=== PATIENT | female | born 1965 | race Caucasian/White ===

== ENCOUNTER 2018-04-28 11:11 | Emergency (ER) | payer OTHER ==
--- NOTE | 2018-04-28 12:31 | RAD REPORT ---
EXAM DESCRIPTION: RAD - Tib Fib Right - 04/28/2018 12:20 pm CLINICAL HISTORY: Right leg pain status post fall FINDINGS: No fracture is seen
--- NOTE | 2018-04-28 13:13 | RAD REPORT ---
EXAM DESCRIPTION: RAD - Knee Right 3 View - 04/28/2018 12:46 pm CLINICAL HISTORY: Right knee pain status post fall FINDINGS: No fracture or dislocation is seen.
--- NOTE | 2018-04-28 13:31 | EDPHYS ---
Physician Documentation [facility] Name: Sophia Li Age: 52 yrs Sex: Female : 1965 Arrival Date: 04/28/2018 Time: 11:13 Bed 16 Private MD: SANJUANA GREER ED Physician Joshua Pierce HPI: 04/28 14:00 This 52 yrs old Female presents to ER via Ambulatory with complaints of Fall pm1 Injury. 14:00 Details of fall: The patient fell from a height, from a ladder, approximately 4 feet. pm1 14:00 Onset: The symptoms/episode began/occurred yesterday. Associated injuries: The patient pm1 sustained right knee. Severity of symptoms: in the emergency department the symptoms are unchanged. The patient has not experienced similar symptoms in the past. The patient has not recently seen a physician. Patient was on a ladder and lost her balance. Patient landed between the ladder on her feet with most of the weight applied to right leg. Patient with pain only present to right knee with certain motions. Patient is able to bear weight and walk on the right leg. only ceratin motions elicit pain to lateral aspect of her right knee. No headache, LOC, head injury or neck pain. 14:00 Patient reports walking with right leg straight, not bending right knee, prevents pain. 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 - Social history:: Smoking status: Patient/guardian denies using tobacco, Patient/guardian denies using alcohol. - Ebola Screening: : Patient negative for fever greater than or equal to 101.5 degrees Fahrenheit, and additional compatible Ebola Virus Disease symptoms Patient denies exposure to infectious person Patient denies travel to an Ebola-affected area in the 21 days before illness onset. ROS: 14:00 Constitutional: Negative for fever, chills, and weight loss, Eyes: Negative for injury, pm1 pain, redness, and discharge, ENT: Negative for injury, pain, and discharge, Neck: Negative for injury, pain, and swelling, Cardiovascular: Negative for chest pain, palpitations, and edema, Respiratory: Negative for shortness of breath, cough, wheezing, and pleuritic chest pain, Abdomen/GI: Negative for abdominal pain, nausea, vomiting, diarrhea, and constipation, Back: Negative for injury and pain, : Negative for injury, bleeding, discharge, and swelling. 14:00 Skin: Negative for injury, rash, and discoloration, Neuro: Negative for headache, weakness, numbness, tingling, and seizure. 14:00 MS/extremity: Positive for pain, of the right knee, Negative for decreased range of motion, deformity. Exam: 14:00 Constitutional: This is a well developed, well nourished patient who is awake, alert, pm1 and in no acute distress. Head/Face: Normocephalic, atraumatic. Eyes: Pupils equal round and reactive to light, extra-ocular motions intact. Lids and lashes normal. Conjunctiva and sclera are non-icteric and not injected. Cornea within normal limits. Periorbital areas with no swelling, redness, or edema. ENT: Nares patent. No nasal discharge, no septal abnormalities noted. Tympanic membranes are normal and external auditory canals are clear. Oropharynx with no redness, swelling, or masses, exudates, or evidence of obstruction, uvula midline. Mucous membranes moist. Neck: Trachea midline, no thyromegaly or masses palpated, and no cervical lymphadenopathy. Supple, full range of motion without nuchal rigidity, or vertebral point tenderness. No Meningismus. Chest/axilla: Normal chest wall appearance and motion. Nontender with no deformity. No lesions are appreciated. Cardiovascular: Regular rate and rhythm with a normal S1 and S2. No gallops, murmurs, or rubs. Normal PMI, no JVD. No pulse deficits. Respiratory: Lungs have equal breath sounds bilaterally, clear to auscultation and percussion. No rales, rhonchi or wheezes noted. No increased work of breathing, no retractions or nasal flaring. Abdomen/GI: Soft, non-tender, with normal bowel sounds. No distension or tympany. No guarding or rebound. No evidence of tenderness throughout. Back: No spinal tenderness. No costovertebral tenderness. Full range of motion. Skin: Warm, dry with normal turgor. Normal color with no rashes, no lesions, and no evidence of cellulitis. 14:00 Musculoskeletal/extremity: Extremities: grossly normal except: noted in the right knee: There is no evidence of decreased ROM, deformity, tenderness. 14:00 Neuro: Orientation: is normal, Motor: moves all fours. Vital Signs: 11:28 BP 124 / 94; Pulse 98; Resp 18; Temp 97.2(TE); Pulse Ox 99% on R/A; Weight 82.55 kg; hj Height 5 ft. 6 in. (167.64 cm); Pain 3/10; 11:28 Body Mass Index 29.38 (82.55 kg, 167.64 cm) hj MDM: 11:59 Patient medically screened. pm1 13:29 Data reviewed: vital signs. Data interpreted: Pulse oximetry: on room air is 99 %. pm1 Interpretation: normal. Counseling: I had a detailed discussion with the patient and/or guardian regarding: the historical points, exam findings, and any diagnostic results supporting the discharge/admit diagnosis, radiology results, the need for outpatient follow up, a orthopedic surgeon, to return to the emergency department if symptoms worsen or persist or if there are any questions or concerns that arise at home. 04/28 11:29 Order name: Tib Fib Right XRAY; Complete Time: 13:23 hj 04/28 12:04 Order name: Knee Right 3 View XRAY; Complete Time: 13:23 pm1 04/28 13:31 Order name: Knee Immobilizer; Complete Time: 13:55 pm1 04/28 13:31 Order name: Crutches; Complete Time: 13:55 pm1 Administered Medications: No medications were administered Disposition: 04/29 10:12 Co-signature as Attending Physician, Joshua Pierce MD. Disposition: 04/28/18 13:30 Discharged to Home. Impression: Pain in right knee. - Condition is Stable. - Discharge Instructions: Crutch Use, Knee Immobilizer, Knee Pain. - Medication Reconciliation Form, Thank You Letter, Antibiotic Education, Prescription Opioid Use form. - Follow up: Emergency Department; When: As needed; Reason: Worsening of condition. Follow up: Vega Eaton MD; When: 2 - 3 days; Reason: Recheck today's complaints, Continuance of care, Re-evaluation by your physician. - Problem is new. - Symptoms have improved. Signatures: Dispatcher [employer] EDMS Caleb Reilly RN RN sg Christian Pollack RN RN Simone Montenegro, COLLECTION TELLER COLLECTION TELLER pm1 Joshua Pierce MD MD gs Corrections: (The following items were deleted from the chart) 04/28 13:57 13:30 04/28/2018 13:30 Discharged to Home. Impression: Pain in right knee. Condition is sg Stable. Forms are Medication Reconciliation Form, Thank You Letter, Antibiotic Education, Prescription Opioid Use. Follow up: Emergency Department; When: As needed; Reason: Worsening of condition. Follow up: Vega Eaton; When: 2 - 3 days; Reason: Recheck today's complaints, Continuance of care, Re-evaluation by your physician. Problem is new. Symptoms have improved. pm1
--- NOTE | 2018-04-28 13:31 | ER ---
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 Transition of care: patient was not received from another setting of care. Onset of symptoms was April 28, 2018. Risk Assessment: Do you want to hurt yourself or someone else? Patient reports no desire to harm self or others. Initial Sepsis Screen: Does the patient meet any 2 criteria? No. Patient's initial sepsis screen is negative. Does the patient have a suspected source of infection? No. Patient's initial sepsis screen is negative. Care prior to arrival: None. 11:25 Method Of Arrival: Ambulatory 11:25 Acuity: ZAN 4 hj Triage Assessment: 11:27 General: Appears in no apparent distress. uncomfortable, Behavior is calm, cooperative, hj appropriate for age. Pain: Complains of pain in right peralta. 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 - Social history:: Smoking status: Patient/guardian denies using tobacco, Patient/guardian denies using alcohol. - Ebola Screening: : Patient negative for fever greater than or equal to 101.5 degrees Fahrenheit, and additional compatible Ebola Virus Disease symptoms Patient denies exposure to infectious person Patient denies travel to an Ebola-affected area in the 21 days before illness onset. Screenin:27 Abuse screen: Denies threats or abuse. Denies injuries from another. Nutritional hj screening: No deficits noted. Tuberculosis screening: No symptoms or risk factors identified. Fall Risk None identified. Assessment: 12:20 General: Appears comfortable, well groomed, well developed, well nourished, Behavior is sg calm, cooperative, appropriate for age. Pain: Complains of pain in right leg Quality of pain is described as aching, worsening with bending of the right knee. Neuro: Level of Consciousness is awake, alert, obeys commands, Gait is steady, Speech is normal, Facial symmetry appears normal. Cardiovascular: Heart tones S1 S2 present Capillary refill is brisk in bilateral fingers Patient's skin is warm and dry. Chest pain is denied. Respiratory: Airway Respiratory effort is even, unlabored, Respiratory pattern is regular, symmetrical. GI: Abdomen is flat, non-distended. : No signs and/or symptoms were reported regarding the genitourinary system. EENT: No signs and/or symptoms were reported regarding the EENT system. Derm: Skin is pink, warm \T\ dry. Musculoskeletal: Circulation, motion, and sensation intact. Range of motion: intact in all extremities, Swelling absent Reports pain in right knee. Vital Signs: 11:28 BP 124 / 94; Pulse 98; Resp 18; Temp 97.2(TE); Pulse Ox 99% on R/A; Weight 82.55 kg; hj Height 5 ft. 6 in. (167.64 cm); Pain 3/10; 11:28 Body Mass Index 29.38 (82.55 kg, 167.64 cm) ED Course: 11:13 Patient arrived in ED. sb2 11:13 SANJUANA GREER is Private Physician. sb2 11:27 Triage completed. hj 11:28 Arm band placed on left wrist. hj 11:28 Patient has correct armband on for positive identification. Bed in low position. Call light in reach. Side rails up X 1. 11:58 Simone Montenegro NP is PHCP. pm1 11:58 Joshua Pierce MD is Attending Physician. pm1 12:19 Tib Fib Right XRAY In Process Unspecified. EDMS 12:19 Knee Right 3 View XRAY In Process Unspecified. EDMS 13:29 Leona Theodore, LISA is Primary Nurse. ss 13:30 Vega Eaton MD is Referral Physician. pm1 13:50 No provider procedures requiring assistance completed. IV discontinued, intact, sg bleeding controlled, No redness/swelling at site. Pressure dressing applied. Administered Medications: No medications were administered Outcome: 13:30 Discharge ordered by . pm1 13:56 Discharged to home ambulatory, with family. sg 13:56 Condition: good 13:56 Discharge instructions given to patient, friend, Instructed on discharge instructions, follow up and referral plans. safety practices, crutch walking, Demonstrated understanding of instructions, follow-up care, crutch walking. 13:57 Patient left the ED. sg Signatures: Dispatcher [employer] EDCaleb Campuzano RN RN sg Smirch, Shelby, RN RN ss Joaquin, Henry, RN RN hj Marinas, Patrick, NP GAME MANAGER pm1 Camila Stern sb2
[2018-04-28 14:17] VITALS: BP 124/94; TEMP 97.2; O2SAT 99
== END 2018-04-28 13:57 | disposition home or self-care (01) ==
LOC: ER 11:11
DX: M25.561 Pain in right knee (principal); W11.XXXA Fall on and from ladder, initial encounter
CPT/HCPCS: 99283

== ENCOUNTER 2023-07-31 21:16 | Emergency (ER) | payer OTHER ==
[2023-07-31] MEDS ORDERED: IBUPROFEN 400 MG TAB ONE (21:55)
--- NOTE | 2023-07-31 22:19 | RAD REPORT ---
EXAM DESCRIPTION: RAD - Forearm Left - 07/31/2023 10:12 pm CLINICAL HISTORY: PAIN COMPARISON: No comparisons FINDINGS: Mildly impacted fracture is likely present involving distal radius particularly in the reg ion of the radial styloid. There is subtle cortical irregularity and sclerosis noted in this region. Moderate soft tissue swelling is noted. No dislocation.
--- NOTE | 2023-07-31 23:05 | ER ---
Nurse's Notes [facility] Name: Sophia Li Age: 57 yrs Sex: Female : 1965 Arrival Date: 07/31/2023 Time: 21:16 Bed 13 Private MD: Diagnosis: impacted fracture distal radius, left Presentation: 07/31 21:38 Chief complaint: Patient states: tripped walking down my hallway and landed on my left vc1 arm. Coronavirus screen: Vaccine status: Patient reports receiving the 2nd dose of the covid vaccine. plus 3 boosters Client denies travel out of the [place] in the last 14 days. At this time, the client does not indicate any symptoms associated with coronavirus-19. Ebola Screen: Patient negative for fever greater than or equal to 101.5 degrees Fahrenheit, and additional compatible Ebola Virus Disease symptoms Patient denies exposure to infectious person. Patient denies travel to an Ebola-affected area in the 21 days before illness onset. No symptoms or risks identified at this time. Initial Sepsis Screen: Does the patient meet any 2 criteria? No. Patient's initial sepsis screen is negative. Does the patient have a suspected source of infection? No. Patient's initial sepsis screen is negative. Risk Assessment: Do you want to hurt yourself or someone else? Patient reports no desire to harm self or others. Onset of symptoms was July 31, 2023. 21:38 Method Of Arrival: Ambulatory vc1 21:38 Acuity: ZAN 4 vc1 21:47 Care prior to arrival: None. Mechanism of Injury: Fall from standing position. Trauma lg3 event details: Injury occurred in the [facility]. Triage Assessment: 21:41 General: Appears in no apparent distress. comfortable, Behavior is calm, cooperative, vc1 appropriate for age. Pain: Complains of pain in left wrist Pain does not radiate. Pain currently is 5 out of 10 on a pain scale. Pain began suddenly, 30 min ago. Is continuous, Alleviated by rest, Aggravated by repositioning, Noted to be grimacing, guarding, resistant to movement, Also complains of no other associated symptoms. EENT: No deficits noted. No signs and/or symptoms were reported regarding the EENT system. Neuro: No deficits noted. Cardiovascular: No deficits noted. Respiratory: Airway is patent Respiratory effort is even, unlabored, Respiratory pattern is regular, symmetrical. GI: No deficits noted. No signs and/or symptoms were reported involving the gastrointestinal system. : No deficits noted. No signs and/or symptoms were reported regarding the genitourinary system. Derm: No deficits noted. No signs and/or symptoms reported regarding the dermatologic system. Musculoskeletal: Swelling present in left wrist. Trauma Activation: Not Applicable Physician: ED Physician; Name: ; Notified At: ; Arrived At: Physician: General Surgeon; Name: ; Notified At: ; Arrived At: Physician: Radiology; Name: ; Notified At: ; Arrived At: Physician: Respiratory; Name: ; Notified At: ; Arrived At: Physician: Lab; Name: ; Notified At: ; Arrived At: Historical: - Allergies: 21:40 No Known Allergies; vc1 - Home Meds: 21:40 rosuvastatin oral [Active]; vc1 - PMHx: 21:40 High Cholesterol; vc1 - PSHx: 21:40 Carpul tunnel Sx Jeff wrists; Appendectomy; Cholecystectomy; vc1 - Immunization history:: Client reports receiving the 2nd dose of the Covid vaccine, Flu vaccine is up to date. - Social history:: Smoking status: Patient denies any tobacco usage or history of. - Immunization history: Last tetanus immunization: - up to date. Screenin:42 [facility] ED Fall Risk Assessment (Adult) History of falling in the last 3 months, vc1 including since admission Yes- single mechanical fall (1 pt) Confusion or Disorientation No (0 pts) Intoxicated or Sedated No (0 pts) Impaired Gait No (0 pts) Mobility Assist Device Used No (0 pt) Altered Elimination No (0 pt) Score/Fall Risk Level 0 - 2 = Low Risk Oriented to surroundings, Maintained a safe environment, Educated pt \T\ family on fall prevention, incl call for assistance when getting out of bed. Abuse screen: Denies threats or abuse. Nutritional screening: No deficits noted. Tuberculosis screening: No symptoms or risk factors identified. Primary Survey: 21:47 NO uncontrolled hemorrhage observed. A: The client is awake and alert. The airway is lg3 patent. Breathing/Chest: Spontaneous respiratory effort, equal unlabored respirations, breath sounds clear bilaterally, regular pattern, symmetrical chest rise and fall. Circulation: No external hemorrhage present. Regular and strong central pulse, skin warm/dry/normal color. Disability Pupils are equal, round, reactive to light and accommodation. Client is alert. Client responds to verbal stimuli. Exposure/Environment: All clothing and personal items were removed. Forensic evidence collection is not deemed to be indicated at this time. Items placed in patient belonging bag. 08/01 00:08 Reassessment Alertness and Airway: Awake and alert. The airway is patent. Breathing: lg3 Spontaneous respiratory effort, equal unlabored respirations, breath sounds clear bilaterally, regular pattern with symmetrical chest rise and fall. Circulation: No external hemorrhage noted. Regular and strong central pulse, skin warm/dry/normal color. Disability: Pupils Pupils are equal, round, reactive to light and accomodation. Alert Verbal stimuli. Assessment: 07/31 21:48 General: Appears in no apparent distress. comfortable, Behavior is calm, cooperative. lg3 Pain: Complains of pain in left arm and left wrist. Neuro: No deficits noted. Coley Agitation-Sedation Scale (RASS): 0 - Alert and Calm Level of Consciousness is awake, alert, obeys commands, Oriented to person, place, time, situation. Cardiovascular: No deficits noted. Denies chest pain, shortness of breath, Capillary refill < 3 seconds Clubbing of nail beds is absent JVD is absent Patient's skin is warm and dry. Respiratory: No deficits noted. Airway is patent Trachea midline Respiratory effort is even, unlabored, Respiratory pattern is regular, symmetrical. GI: No deficits noted. No signs and/or symptoms were reported involving the gastrointestinal system. : No deficits noted. No signs and/or symptoms were reported regarding the genitourinary system. EENT: No deficits noted. No signs and/or symptoms were reported regarding the EENT system. Derm: No deficits noted. No signs and/or symptoms reported regarding the dermatologic system. Skin is intact, is healthy with good turgor, Skin is dry, Skin is normal, Skin temperature is warm. Musculoskeletal: Circulation, motion, and sensation intact. Reports pain in left wrist. 08/01 00:06 Reassessment: Patient appears in no apparent distress at this time. No changes from lg3 previously documented assessment. Patient and/or family updated on plan of care and expected duration. Pain level reassessed. Patient is alert, oriented x 3, equal unlabored respirations, skin warm/dry/pink. Vital Signs: 07/31 21:38 BP 160 / 100; Pulse 64; Resp 15; Temp 98; Pulse Ox 99% ; Weight 73.48 kg; Height 6 ft. vc1 2 in. ; Pain 5/10; 21:48 BP 156 / 95; Pulse 66; Resp 16 S; Pulse Ox 99% on R/A; lg3 12 00:07 BP 151 / 89; Pulse 69; Resp 17 S; Pulse Ox 99% on R/A; lg3 12 21:38 Body Mass Index 20.80 (73.48 kg, 187.96 cm) vc1 12 21:38 Pain Scale: Adult vc1 Jared Coma Score: 12 21:47 Eye Response: spontaneous(4). Motor Response: obeys commands(6). Verbal Response: lg3 oriented(5). Total: 15. Trauma Score (Adult): 21:47 Eye Response: spontaneous(1); Verbal Response: oriented(1); Motor Response: obeys lg3 commands(2); Systolic BP: > 89 mm Hg(4); Respiratory Rate: 10 to 29 per min(4); Lancaster Score: 15; Trauma Score: 12 ED Course: 21:21 Patient arrived in ED. mr 21:34 [facility] Cool [facility]C [facility]. kb 21:34 Solo Perez MD is Attending Physician. kb 21:40 Triage completed. vc1 21:40 Arm band placed on right wrist. vc1 21:43 Patient has correct armband on for positive identification. Bed in low position. Call vc1 light in reach. Pulse ox on. NIBP on. 21:47 Patient maintains SpO2 saturation greater than 95% on room air. lg3 21:48 Door closed. Noise minimized. Warm blanket given. Family accompanied patient. lg3 22:14 Forearm Left XRAY In Process Unspecified. EDMS 08/01 00:06 Yuliya Bundy, RN is Primary Nurse. lg3 00:07 Assist provider with fracture care of left arm Fracture is closed. Obvious deformity is lg3 not noted. Circulation, motor and sensation is intact. Set up for procedure. Performed by Yuliya Bundy RN Immobilized with preformed splint, Post immobilization, circulation, motor and sensation remain intact. Patient tolerated well. Patient did not have IV access during this emergency room visit. 00:08 Thermoregulation: warm blanket given to patient. lg3 Administered Medications: 07/31 21:47 Drug: Ibuprofen PO 800 mg PO once Route: PO; lg3 08/01 00:06 Follow up: Response: No adverse reaction lg3 07/31 23:22 Drug: Harvey PO 10 mg-325 mg 1 tabs PO once Route: PO; lg3 08/01 00:06 Follow up: Response: No adverse reaction; Marked relief of symptoms lg3 Medication: 00:08 VIS not applicable for this client. lg3 Outcome: 07/31 23:04 Discharge ordered by MD. phelan 08/01 00:07 Discharged to home ambulatory, with significant other, lg3 Condition: stable Discharge instructions given to patient, Instructed on discharge instructions, follow up and referral plans. medication usage, Demonstrated understanding of instructions, follow-up care, medications, splint care, Prescriptions given X 1, 00:08 Patient's length of stay was not longer than 2 hours. lg3 00:08 Patient left the ED. lg3 Signatures: Dispatcher [employer] EDMS Lety Cool, MALT ROASTER-C MALT ROASTER-Ana [place], Reg Reg Yuliya Ramirez, RN RN lg3 Doreen Engle RN RN vc1
--- NOTE | 2023-07-31 23:05 | EDPHYS ---
Physician Documentation [facility] Name: Sophia Li Age: 57 yrs Sex: Female : 1965 Arrival Date: 07/31/2023 Time: 21:16 Bed 13 Private MD: ED Physician Solo Perez HPI: 07/31 21:46 This 57 yrs old Female presents to ER via Ambulatory with complaints of Fall Injury, kb Arm Pain, Head Injury-Adult. 21:46 Pt is a 57 year old female who presents for left wrist pain after tripping and falling, kb hitting the wall. States she hit her head as well, but denies loc, headache, dizziness, nausea or vomiting. Historical: - Allergies: 21:40 No Known Allergies; vc1 - Home Meds: 21:40 rosuvastatin oral [Active]; vc1 - PMHx: 21:40 High Cholesterol; vc1 - PSHx: 21:40 Carpul tunnel Sx Jeff wrists; Appendectomy; Cholecystectomy; vc1 - Immunization history:: Client reports receiving the 2nd dose of the Covid vaccine, Flu vaccine is up to date. - Social history:: Smoking status: Patient denies any tobacco usage or history of. - Immunization history: Last tetanus immunization: - up to date. ROS: 21:46 Constitutional: Negative for fever, chills, and weight loss, kb 21:46 MS/extremity: Positive for decreased range of motion, pain, swelling, tenderness, of the left wrist, 21:46 All other systems are negative, Exam: 21:46 Constitutional: This is a well developed, well nourished patient who is awake, alert, kb and in no acute distress. Head/Face: Normocephalic, atraumatic. ENT: Moist Mucous membranes Respiratory: Respirations even and unlabored. No increased work of breathing. Talking in full sentences Skin: Warm, dry with normal turgor. Normal color. Neuro: Awake and alert, GCS 15, oriented to person, place, time, and situation. Moves all extremities. Normal gait. 21:46 Musculoskeletal/extremity: Extremities: grossly normal except: noted in the left wrist: decreased ROM, pain, swelling, tenderness, ROM: limited active range of motion due to pain, Circulation is intact in all extremities. Sensation intact. Vital Signs: 21:38 BP 160 / 100; Pulse 64; Resp 15; Temp 98; Pulse Ox 99% ; Weight 73.48 kg; Height 6 ft. vc1 2 in. ; Pain 5/10; 21:48 BP 156 / 95; Pulse 66; Resp 16 S; Pulse Ox 99% on R/A; lg3 08/01 00:07 BP 151 / 89; Pulse 69; Resp 17 S; Pulse Ox 99% on R/A; lg3 07/31 21:38 Body Mass Index 20.80 (73.48 kg, 187.96 cm) vc1 12 21:38 Pain Scale: Adult vc1 Jared Coma Score: 07/31 21:47 Eye Response: spontaneous(4). Motor Response: obeys commands(6). Verbal Response: lg3 oriented(5). Total: 15. Trauma Score (Adult): 21:47 Eye Response: spontaneous(1); Verbal Response: oriented(1); Motor Response: obeys lg3 commands(2); Systolic BP: > 89 mm Hg(4); Respiratory Rate: 10 to 29 per min(4); Manor Score: 15; Trauma Score: 12 MDM: 21:34 Patient medically screened. kb 21:46 Differential diagnosis: closed head injury, contusion, fracture, sprain. Data reviewed: zhane vital signs, nurses notes. 23:05 Independent interpretation of the following test(s) in the Emergency Department X-Ray: kb My interpretation is distal radius fracture. Test considered but Not performed: CT: ct head considered, but pt has no neuro deficits and denies loc/headache. Counseling: I had a detailed discussion with the patient and/or guardian regarding the historical points, exam findings, and any diagnostic results supporting the discharge/admit diagnosis, radiology results, the need for outpatient follow up, a orthopedic surgeon, to return to the emergency department if symptoms worsen or persist or if there are any questions or concerns that arise at home. 07/31 21:34 Order name: Forearm Left XRAY; Complete Time: 22:30 kb 07/31 23:04 Order name: Sugar Tong Forearm Splint; Complete Time: 00:06 kb 07/31 23:04 Order name: Sling; Complete Time: 00:06 kb Administered Medications: 21:47 Drug: Ibuprofen PO 800 mg PO once Route: PO; lg3 08/01 00:06 Follow up: Response: No adverse reaction lg3 07/31 23:22 Drug: Toluca PO 10 mg-325 mg 1 tabs PO once Route: PO; lg3 08/01 00:06 Follow up: Response: No adverse reaction; Marked relief of symptoms lg3 Disposition: 07/31 23:11 Co-signature as Attending Physician, Solo Perez MD I agree with the assessment sp4 and plan of care. I reviewed the patient's care provided by the Advanced Practice Provider and agree with the diagnosis and treatment plan. Disposition Summary: 07/31/23 23:04 Discharge Ordered Notes: Location: Home kb Condition: Stable kb Diagnosis - impacted fracture distal radius, left kb Followup: kb - With: Emergency Department - When: As needed - Reason: Worsening of condition Followup: kb - With: Private Physician - When: 2 - 3 days - Reason: Recheck today's complaints, Continuance of care, Re-evaluation by your physician Discharge Instructions: - Discharge Summary Sheet kb - Radial Fracture kb Forms: - Medication Reconciliation Form kb - Thank You Letter kb - Antibiotic Education kb - Prescription Opioid Use kb - Patient Portal Instructions kb - Leadership Thank You Letter kb Prescriptions: - Diclofenac Sodium 75 mg Oral tablet, delayed release (enteric coated) - take 1 tablet ORAL route 2 times per day As needed; 30 tablet; Refills: 0, kb Product Selection Permitted Signatures: Dispatcher [employer] Lety Bass, MARANDA [employer]-Yuliya Patel RN RN lg3 Doreen Engle RN RN vc1 Solo Perez MD MD sp4
[2023-07-31] MEDS ORDERED: HYDROCODONE/APAP 5/325 MG TAB ONE (23:33)
[2023-08-01 00:29] VITALS: TEMP 98; O2SAT 99
[2023-08-01 00:31] VITALS: BP 151/89
== END 2023-08-01 00:08 | disposition home or self-care (01) ==
LOC: ER 21:16
PROC: 2W3DX1Z Immobilization of Left Lower Arm using Splint (ICD-10-PCS; principal; 2023-08-01)
DX: S52.592A Other fractures of lower end of left radius, initial encounter for closed fracture (principal); E78.00 Pure hypercholesterolemia, unspecified
CPT/HCPCS: 99285